=== PATIENT | male | born 1980 | race African-American/Black ===

== ENCOUNTER 2017-12-25 21:31 | Emergency (ER) | payer OTHER ==
[~2017-12-25] VITALS: Ht 182.9 cm; Wt 91.0 kg
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
[2017-12-25] MEDS ORDERED: SULF1TAB24 PO (22:21)
[2017-12-25] MEDS ORDERED: BACI28.34 TP (22:22)
[2017-12-25] MEDS ORDERED: SMZ/TMP 800/160MG TABLET. PO ONE (22:30)
[2017-12-25] MEDS ORDERED: cefTRIAXone IM 1 GM VIAL IM ONE (22:30)
[2017-12-25] MEDS ORDERED: IBUPROFEN 600 MG TABLET. PO ONE (22:30)
--- NOTE | 2017-12-25 23:25 | RAD ---
AP and lateral right tibia and fibula radiographs 12/25/2017 CLINICAL HISTORY: Right lower leg pain and swelling 2 AP and 2 lateral digital radiographs of the right tibia and fibula were obtained. No fracture or dislocation is seen. No radiopaque foreign body is noted. IMPRESSION: No acute osseous abnormality is seen. Electronically signed by: Giovanni Conklin MD (12/25/2017 11:22 PM) [facility]
[2017-12-26 00:06] VITALS: BP 140/94
--- NOTE | 2017-12-26 00:11 | RAD ---
Three-view right foot radiographs 12/25/2017 CLINICAL HISTORY: Right foot pain and swelling. AP, lateral and oblique digital radiographs of the right foot were obtained. Mild hallux valgus deformity is seen. No fracture or dislocation of the right foot is seen. Minimal enthesophyte formation is seen involving the plantar aspect of the right calcaneus. Mild degenerative changes are seen involving the first MTP joint. IMPRESSION: Mild degenerative changes are seen involving the right foot as outlined above. No acute osseous abnormality is seen. Electronically signed by: Giovanni Conklin MD (12/26/2017 12:07 AM) [facility]
== END 2017-12-26 00:06 | disposition home or self-care (01) ==
LOC: ER 21:31
DX: L03.115 Cellulitis of right lower limb (principal); M25.571 Pain in right ankle and joints of right foot
CPT/HCPCS: 73590; 73630; 96372; 99284; J0696

== ENCOUNTER 2018-04-14 08:48 | Emergency (ER) | payer OTHER ==
[~2018-04-14] VITALS: Ht 182.9 cm; Wt 90.2 kg
[~2018-04-14 08:48] MED LIST: BACI28.34 TP; SULF1TAB24 PO
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
--- NOTE | 2018-04-14 09:32 | RAD ---
Examination: 3 views of the right ankle HISTORY: History of twisted ankle 2 days back COMPARISON: None available FINDINGS: The alignment of the ankle mortise grossly appears unremarkable. There is no acute fracture dislocation identified. Mild soft tissue swelling identified about the ankle joint. IMPRESSION: 1. No acute osseous finding. 2. Mild soft tissue swelling identified about the ankle joint likely soft tissue injury. Electronically signed by: Moustapha Zacarias MD (04/14/2018 9:29 AM) [facility]
[2018-04-14] MEDS ORDERED: CLOB15CR TP (10:07)
[2018-04-14 10:16] VITALS: BP 154/104
== END 2018-04-14 10:17 | disposition home or self-care (01) ==
LOC: ER 08:48
DX: S93.401A Sprain of unspecified ligament of right ankle, initial encounter (principal); X50.1XXA Overexertion from prolonged static or awkward postures, initial encounter; Y93.01 Activity, walking, marching and hiking; Y92.89 Other specified places as the place of occurrence of the external cause; Y99.8 Other external cause status
CPT/HCPCS: 73610; 99284